=== PATIENT | female | born 1980 | race African-American/Black ===

== ENCOUNTER → 2016-09-11 | Outpatient (CLI) | payer OTHER | LOC: RAD 13:21 | PROVIDERS: ATTEND Nurse Practitioner Family | DX: R55 Syncope and collapse (principal) | CPT/HCPCS: 70470 ==

== ENCOUNTER 2019-08-26 16:07 | Emergency (ER) | payer MEDICAID, OTHER ==
--- NOTE | 2019-08-26 16:56 | RADIOLOGY REPORT (SQ) ---
EXAM DESCRIPTION: ELBOW LEFT OVER 2 VIEWS COMPLETED DATE/TIME: 08/26/2019 4:46 pm REASON FOR STUDY: FALL; PAIN WITH MOVEMENT COMPARISON: None. NUMBER OF VIEWS: Four views. TECHNIQUE: AP, lateral, and both oblique radiographic images acquired of the left elbow. LIMITATIONS: None. FINDINGS: MINERALIZATION: Normal. BONES: No acute fracture or dislocation. JOINT: No effusion. SOFT TISSUES: No soft tissue swelling or radiopaque foreign body. OTHER: No other finding. IMPRESSION: No acute osseous abnormality of the left elbow. TECHNICAL DOCUMENTATION: JOB ID: [id number] [employer]- All Rights Reserved Reading location - IP/workstation name: [email or web address]
[2019-08-26] MEDS ORDERED: IBUPROFEN 800 MG TABLET PO ONE (18:15)
--- NOTE | 2019-08-26 18:16 | ER Document Report ---
HPI - HPI Patient complains to provider of: Left elbow pain Time Seen by Provider: 08/26/19 18:11 Onset: This morning Onset/Duration: Persistent Quality of pain: Achy Severity: Severe Pain Level: 4 Context: 38-year-old female with history of seizures presents emergency department left elbow pain after falling down a few steps this morning and hitting her elbow. No change in LOC. Does not think she had a seizure. Reports she has not had a seizure since 2017. Denies other symptoms such as fever vomiting diarrhea. Patient is alert and oriented answering all questions. Associated Symptoms: None Exacerbated by: Denies Relieved by: Denies Similar symptoms previously: No Recently seen / treated by doctor: No - REPRODUCTIVE Reproductive: DENIES: : Past Medical History - General Information source: Patient Last Menstrual Period: August - Social History Smoking Status: Never Smoker Occupation: Slee[employer] Family History: Reviewed & Not Pertinent Patient has suicidal ideation: No Patient has homicidal ideation: No Neurological Medical History: Reports: Hx Seizures Past Surgical History: Reports: Hx Cholecystectomy - Immunizations Hx Diphtheria, Pertussis, Tetanus Vaccination: No Vertical Provider Document - CONSTITUTIONAL Agree With Documented VS: Yes Exam Limitations: No Limitations General Appearance: WD/WN, No Apparent Distress - INFECTION CONTROL TRAVEL OUTSIDE OF THE [place] IN LAST 30 DAYS: No - HEENT HEENT: Atraumatic, Normocephalic - NECK Neck: Supple - RESPIRATORY Respiratory: No Respiratory Distress - CARDIOVASCULAR Cardiovascular: Regular Rate - MUSCULOSKELETAL/EXTREMETIES Musculoskeletal/Extremeties: MAEW, FROM, Tender - Left elbow tender to palpate no obvious deformity no swelling no erythema no warmth full range of motion radial pulse good cap refill less than 3 seconds. - NEURO Level of Consciousness: Awake, Alert, Appropriate Motor/Sensory: No Motor Deficit - DERM Integumentary: Warm, Dry Course - Re-evaluation Re-evalutation: 08/26/19 18:17 Left elbow with no obvious deformity full range of motion good radial pulse. Patient instructed on negative fractures of the left elbow. Instructed on rest ice elevate elbow sling offered and accepted for comfort. She was instructed to return for worsening symptoms follow-up with orthopedics as indicated she verbalized understanding to all instructions Elbow X-Ray 08/26/19 00:00 IMPRESSION: No acute osseous abnormality of the left elbow. - Vital Signs Vital signs: Temp Pulse Resp BP Pulse Ox 98.2 F 100 16 145/97 H 100 08/26/19 16:33 08/26/19 16:33 08/26/19 16:33 08/26/19 16:33 08/26/19 16:33 - Diagnostic Test Radiology reviewed: Image reviewed, Reports reviewed Procedures - Immobilization Left Elbow Immobilizer type: Sling Performed by: PCT Post-Proc Neuro Vasc Exam: Unchanged from pre-exam Discharge - Discharge Clinical Impression: Elbow pain, left Condition: Stable Disposition: HOME, SELF-CARE Instructions: Use of Imjx-Bzl-Djhwabo Ibuprofen ([facility]), Ice & Elevation ([facility]), Temporary Sling ([facility]) Additional Instructions: *You have been evaluated for left elbow pain *Maintain the need for comfort *Rest/Ice/Elevate your elbow *Follow up with orthopedics within 1 week for continued pain *Take ibuprofen as indicated for pain *Return to ED for worsening condition, changes, needs Referrals: DORY ÁLVAREZ MD [Primary Care Provider] - Follow up in 1 week
[2019-08-26 18:26] VITALS: BP 124/87
== END 2019-08-26 18:28 | disposition home or self-care (01) ==
LOC: ER 16:07
DX: M25.522 Pain in left elbow (principal); W10.9XXA Fall (on) (from) unspecified stairs and steps, initial encounter
CPT/HCPCS: 99283; 73080; J3490

== ENCOUNTER 2019-12-21 08:37 | Day surgery (SDC) | payer MEDICAID ==
[~2019-12-21 08:37] MED LIST: PROPOFOL INJ 200 MG/20 ML VIAL IV ONE
[2019-12-21] MEDS ORDERED: PROPOFOL INJ 200 MG/20 ML VIAL IV ONE (10:04)
[2019-12-21 12:59] VITALS: BP 130/98
--- NOTE | 2019-12-21 13:39 | Operative Report ---
Operative Report DATE OF SURGERY: 12/21/19 Operative Report: The risk, benefits and alternatives of the procedure including the risk of bleeding, perforation requiring surgery have been explained to the patient in detail and informed consent has been obtained. The patient is placed in the left, lateral decubital position. Timeout was called. Propofol medication is administered. Rectal examination is done which did not reveal any masses, tears or fissures. An Olympus videoscope was introduced into the patient's rectum. Scope was then carefully advanced all the way to the cecum. Cecum was identified by the usual anatomical landmarks including the ileocecal valve as well as the appendiceal office. Photodocumentation is obtained. Scope was then sequentially pulled back via the various segments of the colon including the ascending colon, back flexure, transverse colon, splenic flexure, descending colon finding to the rectosigmoid portions of the colon. Retroflexion maneuvers performed. PREOPERATIVE DIAGNOSIS: Rectal bleeding POSTOPERATIVE DIAGNOSIS: Colonic inflammation from 0 to 35 cm status post biopsy consistent with likely ulcerative colitis. Internal hemorrhoids OPERATION: Colonoscopy with biopsy SURGEON: VIRGILIO RUBIO ANESTHESIA: LMAC TISSUE REMOVED OR ALTERED: As noted above. COMPLICATIONS: None. ESTIMATED BLOOD LOSS: None. INTRAOPERATIVE FINDINGS: As noted above. PROCEDURE: Patient tolerated the procedure well. No immediate postprocedure complications are noted. Patient is discharged in good condition. Discharge date 12/21/2019. Discharge diet: Regular. Discharge activity: Regular. 2 to 3-week follow-up to discuss findings. Patient is instructed to call the office or proceed to the emergency room should there be any further problems or questions. Wait on the pathology.
== END 2019-12-21 12:00 | disposition home or self-care (01) ==
LOC: OROUT 08:37
PROVIDERS: ATTEND Internal Medicine Gastroenterology
DX: K52.9 Noninfective gastroenteritis and colitis, unspecified (principal); K64.8 Other hemorrhoids; K62.89 Other specified diseases of anus and rectum; K62.5 Hemorrhage of anus and rectum; I10 Essential (primary) hypertension; Z88.0 Allergy status to penicillin; E78.5 Hyperlipidemia, unspecified; Z79.899 Other long term (current) drug therapy
CPT/HCPCS: 45380; 88305 ×2; 00811; J2704; 811